=== PATIENT | male | born 1945 | race Caucasian/White ===

== ENCOUNTER 2016-11-19 15:39 | Inpatient (IN) ==
--- NOTE | 2016-11-19 16:28 | Emergency Department Note ---
Disposition Clinical Impression: Anemia, Aortic aneurysm, abdominal, Obesity, Back pain, Peripheral artery disease, HLD (hyperlipidemia), Pulmonary embolus, HTN (hypertension), Smoker Disposition: Admitted As Inpatient [facility] Provider[facility] - Forms: ED Satisfaction Letter General Adult HPI - General Chief complaint: ED Recheck/Abnormal Lab/Rx Stated complaint: confirmed PE's x 3 Time Seen by Provider: 11/19/16 15:51 Source: patient, EMS Limitations: no limitations - History of Present Illness HPI Narrative: 71-year-old male reports to the emergency department complaining of back pain. He went to the [place] with concerns for back pain. They did a CT which demonstrated multiple PEs and an aortic aneurysm. The patient's aneurysm is described as stable. He has a known aneurysm. The patient denies any falls or injuries. He reports he has had an EGD with repeat EGD secondary to gastric ulcers. He states that his second EGD showed his ulcers to be healed after his course of medication. He had a recent colonoscopy which showed no lesions. [facility] an anemia with a hemoglobin of 7.6. The patient reports the back pain started shortly after his endoscopy procedures about 3 months ago. The patient has had no syncope but describes significant fatigue. He denies acute abdominal pain vomiting or diarrhea and no bloody or black in the material in the stool. There is no history of rash fever or urinary problems no troubles moving the arms or legs independently no trouble walking talking hearing seeing or speaking or slurred speech or headache reported. The patient describes mid thoracic area back pain no lower back pain. No history of bowel or bladder problems. No fevers or cough leg swelling or pain or syncope. The patient has not had coughing of blood. He is not known to be anticoagulated apart from taking Plavix. Pain Scale: 0 - Related Data Home Medications Medication Instructions Recorded Confirmed Albuterol Sulfate [Albuterol 2 puff IH QID PRN 11/19/16 11/19/16 Inhaler] Aripiprazole [Abilify] 15 mg PO HS 11/19/16 11/19/16 Aspirin Enteric Coated [Aspirin EC] 81 mg PO DAILY 11/19/16 11/19/16 Bisacodyl [Dulcolax] 5 mg PO DAILY PRN 11/19/16 11/19/16 Budesonide/Formoterol 160/4.5 2 puff IH BIDR 11/19/16 11/19/16 [Symbicort 160/4.5] Clopidogrel [Plavix] 75 mg PO DAILY 11/19/16 11/19/16 Doxepin HCl 50 mg PO BID 11/19/16 11/19/16 Doxepin HCl 150 mg PO HS 11/19/16 11/19/16 Ipratropium [Atrovent Inhaler] 2 puff IH QID 11/19/16 11/19/16 Ketotifen Fumarate 1 drop BOTH EYES BID 11/19/16 11/19/16 Lisinopril [Zestril] 20 mg PO DAILY 11/19/16 11/19/16 Montelukast [Singulair] 10 mg PO DAILY 11/19/16 11/19/16 Omeprazole [PriLOSEC] 40 mg PO DAILY 11/19/16 11/19/16 Oxycodone HCl/Acetaminophen 1 each PO Q6H PRN 11/19/16 11/19/16 [Percocet 5-325 mg Tablet] Sennosides/Docusate Sodium [Senna 1 each PO BID 11/19/16 11/19/16 Plus] Simvastatin [Zocor] 80 mg PO HS 11/19/16 11/19/16 Triamcinolone Acet 0.1% CRM 1 appl TP BID 11/19/16 11/19/16 [Kenalog] Urea 1 appl TP BID 11/19/16 11/19/16 Allergies Allergy/AdvReac Type Severity Reaction Status Date / Time atorvastatin [From Lipitor] AdvReac See Verified 11/19/16 16:45 Comments colestipol AdvReac See Verified 11/19/16 16:45 Comments gabapentin AdvReac See Verified 11/19/16 16:45 Comments Methadone AdvReac Abdominal Verified 11/19/16 16:02 Pain niacin AdvReac See Verified 11/19/16 16:45 Comments pregabalin [From Lyrica] AdvReac Depression Verified 11/19/16 16:02 Salsalate AdvReac Nausea Verified 11/19/16 16:02 All systems ED: reviewed and negative except as stated. Past Medical History - Past Medical History Medical history: Reports: arthritis, COPD, hyperlipidemia, hypertension, pulmonary embolus, other Psychiatric history: Reports: PTSD - Social History Smoking Status: Current every day smoker Smokeless Tobacco Status: No Alcohol use: Reports: none Drug use: Reports: none Physical Exam - General Limitations: no limitations General appearance: alert, in no apparent distress - Head Head exam: atraumatic, normocephalic, normal inspection - Eye Eye exam: Present: normal appearance, PERRL, EOMI - ENT ENT exam: normal exam, normal oropharynx, mucous membranes moist - Neck Neck exam: Present: normal inspection, full ROM, trachea midline - Chest Chest inspection: Present: symmetric chest wall rise. Absent: tenderness - Respiratory Respiratory exam: Present: normal lung sounds bilaterally. Absent: respiratory distress - Cardiovascular Cardiovascular exam: Present: regular rate, normal rhythm, normal heart sounds - Abdominal Exam Abdominal exam: Present: soft, Non-Tender, normal bowel sounds. Absent: tenderness, distention, guarding, rebound, rigidity, pulsatile mass - Extremities Exam Extremities exam: Present: normal inspection, full ROM, normal capillary refill. Absent: tenderness, pedal edema, joint swelling, calf tenderness - Expanded Lower Extremity Exam Neurovascular/Tendon exam: Absent: motor deficit, sensory deficit, tendon deficit, extremity cold to touch, pallor - Back Exam Back exam: Present: normal inspection, full ROM. Absent: tenderness, CVA tenderness (R), CVA tenderness (L), vertebral tenderness - Neurological Exam Neurological exam: Present: alert, oriented X3, CN II-XII intact. Absent: motor sensory deficit - Psychiatric Psychiatric exam: Present: normal affect, normal mood - Skin Skin exam: Present: warm, dry, intact, normal color. Absent: rash, cyanosis, diaphoresis, erythema, pallor, mottled Course Vital Signs Temperature 98.1 F 11/19/16 15:44 Pulse Rate 62 11/19/16 15:44 Respiratory Rate 16 11/19/16 15:44 Blood Pressure 172/50 11/19/16 15:44 O2 Sat by Pulse Oximetry 100 11/19/16 15:44 Temperature 98.1 F 11/19/16 15:44 Pulse Rate 58 11/19/16 17:07 Respiratory Rate 18 11/19/16 17:07 Blood Pressure 159/64 11/19/16 17:07 O2 Sat by Pulse Oximetry 98 11/19/16 17:07 Oxygen Delivery Oxygen Delivery Room Air Medical Decision Making - MDM Narrative Medical decision making narrative: [facility] E[facility] and laboratory studies. The patient is elderly, he has multiple PEs by CT scan as well as an abdominal aortic aneurysm and significant anemia. He describes weakness and fatigue indicating symptomatic anemia. The patient declines a rectal examination, he denies black or bloody stool, he had a recent EGD and colonoscopy which he states were unremarkable. The patient is currently not anticoagulated, he is not experiencing chest pain. The [facility] consulted [facility] hospitalist who felt the patient was too complicated for their institution and recommended admission at our facility. The patient was transferred to our ER. Based on his age, multiple comorbidities, apparent acute PE findings, associated anemia, abdominal aneurysm, as well as back pain, I think the patient is best admitted and evaluated via a multidisciplinary construction safety consultant team. I discussed the case with the hospitalist is consultant who has accepted the patient to their care. The patient is currently stable. Further construction safety consultant evaluation could be considered including gastroenterology, hematology, surgery, and/or pulmonology. - Lab Data Lab results reviewed: Yes I reviewed the patient's lab results. - Radiology Data Radiology results reviewed: Yes I reviewed the patient's radiology results.
--- NOTE | 2016-11-19 20:08 | Internal Med History&Physical ---
<Ivania Dominguez - Last Filed: 11/20/16 19:17> Date of Encounter: 11/19/16 Time of Encounter: 20:06 Assessment and Plan (1) Pulmonary embolus Status: Acute CT scan from [place] with multiple PE, RML,RLL,LLL pt asymptomatic, hemodynamically stable start heparin drip hold asprin, plavix monitor PTT monitor H/H consider ECHO for possible RH strain consider LE doppler pulso Ox monitoring and secured entrance monitor Qualifiers: Pulmonary embolism type: other Chronicity: acute Acute cor pulmonale presence: without acute cor pulmonale Qualified Code(s): I26.99 - Other pulmonary embolism without acute cor pulmonale (2) Anemia Status: Chronic etiology GI bleed vs chronic disease doubt B12, folate, inheritance mildly symptomatic blood type and screen transfuse for symptoms and initiation of heparin for PE Fe 22, folate 19.9 B12 310 TIBC elevated at 526 and transferrin elevated 369 Qualifiers: Anemia type: unspecified type Qualified Code(s): D64.9 - Anemia, unspecified (3) Aortic aneurysm, abdominal Status: Chronic chronic, unchanged at 3.3 Qualifiers: Presence of rupture: without rupture Qualified Code(s): I71.4 - Abdominal aortic aneurysm, without rupture (4) Cholelithiasis Status: Acute seen on CT, currently asymptomatic Qualifiers: Cholelithiasis location: gallbladder Cholecystitis presence: without cholecystitis Biliary obstruction: without biliary obstruction Qualified Code(s): K80.20 - Calculus of gallbladder without cholecystitis without obstruction (5) Back pain Status: Chronic etiology possibly PE vs musculoskeletal,DDD, arthritis, chronic pain, opiate dependance, sees pain specialists continue home chronic pain medications Qualifiers: Back pain location: low back pain Back pain laterality: bilateral Sciatica presence: without sciatica (6) Lung nodule < 6cm on CT Status: Acute COPD, current s moker >45yrs seen on CT scan 5.3 calcified nodule recommend f/u CT scan in 3 months consider pulm consult (7) Renal cyst Status: Acute found on Ct scan consider nephro consult (8) HLD (hyperlipidemia) Status: Acute continue home home med Qualifiers: Hyperlipidemia type: unspecified Qualified Code(s): E78.5 - Hyperlipidemia , unspecified (9) HTN (hypertension) Status: Acute continue home meds monitor BP Qualifiers: Hypertension type: essential hypertension Qualified Code(s): I10 - Essential (primary) hypertension (10) Obesity Status: Chronic cardiac diet glucose 148 continue to monitor glucose Qualifiers: Obesity type: due to excess calories Obesity severity: non-morbid Qualified Code(s): E66.09 - Other obesity due to excess calories (11) Peripheral artery disease Status: Chronic (12) Smoker Status: Chronic offer nicotine patch prn (13) COPD (chronic obstructive pulmonary disease) Status: Acute currently stable, current smoker continue bronchodilator therapy Qualifiers: COPD type: unspecified COPD Qualified Code(s): J44.9 - Chronic obstructive pulmonary disease, unspecified (14) PTSD (post-traumatic stress disorder) Status: Chronic continue home meds Internal Medicine - H&P: HPI Chief complaint: back pain Admitted From: Hospital to Hospital Transfer (from [place]) Plans for Post Hospital Care: Home History of present illness: Mr. Robison is a 71 year old male c/o back pain. Pt transfered from [place] with evidence of multiple PEs on CT scan. PMHx AAA, CAD, PVD,COPD,HTN,HLD,smoker c/o back pain x3 months that is dull achying 10/10 located midthoracic and lumbar back without radiation. Pt states that back pain ,mostly occurs when he is standing in the shower, he is very sedentary at home and showering for about 10- 15 minutes is the longest time he spends standing in one position. Pt states that after standing this long back he gets muscles spasms in his back and pain starts without relieve from percocets or excedrin. Pt states pain is improved with sitting, and that the longer time he stand without sitting, the longer it will take for the pain to subside. Pt denies pain with sitting, any specific movements, laying flat. walking and any increased exertion increase back pain and cause him to feel weak and tired. Pt also states increased fatigue, even after sleeping well he will wake up tired and need to sit down and rest within an hour of waking. Pt states that he was following with GI because he was bleeding from somewhere, he had colonoscopy and EGD which showed polyps and 3 stomach ulcers, at follow up GI appointment a few weeks ago he was told stomach ulcers were healing. Pt also c/o some lower abdominal pain and queasiness that comes and goes without a specific inciting cause that he can think of. Pt denies falls, trauma, bleeding episodes, lightheaded, dizziness, blurred vision , ringing in ears, palpitations, CP, increased SOB or dry cough from baseline COPD, wheeze of pain with inspiration. Pt denies calf pain, LE edema, coughing up or vomiting blood, blood in stools or urine, with no change in BM or urinary habits. Past Med Surg Social Fam HX - Past Medical History Medical history: aortic aneurysm (AAA), arthritis, COPD, coronary artery disease , GERD, hyperlipidemia, hypertension, peripheral artery disease, pulmonary embolus, other (DDD, hypogonadism, BPH,) Psychiatric history: PTSD - Past Surgical History Surgical History: LE stent(s) (B/L femoral with replacement), other (inginal hernia repair) - Social History Smoking Status: Current every day smoker Packs per day: 1+ Smokeless Tobacco Status: No Alcohol use: none Drug use: none Internal Medicine - H&P: Meds Albuterol Sulfate [Albuterol Inhaler] 2 puff IH QID PRN 11/19/16 [History] Aripiprazole [Abilify] 15 mg PO HS 11/19/16 [History] Aspirin Enteric Coated [Aspirin EC] 81 mg PO DAILY 11/19/16 [History] Bisacodyl [Dulcolax] 5 mg PO DAILY PRN 11/19/16 [History] Budesonide/Formoterol 160/4.5 [Symbicort 160/4.5] 2 puff IH BIDR 11/19/16 [ History] Clopidogrel [Plavix] 75 mg PO DAILY 11/19/16 [History] Doxepin HCl 50 mg PO DAILY 11/19/16 [History] Doxepin HCl 150 mg PO HS 11/19/16 [History] Ipratropium [Atrovent Inhaler] 2 puff IH QID 11/19/16 [History] Ketotifen Fumarate 1 drop BOTH EYES BID 11/19/16 [History] Lisinopril [Zestril] 20 mg PO DAILY 11/19/16 [History] Montelukast [Singulair] 10 mg PO DAILY 11/19/16 [History] Omeprazole [PriLOSEC] 40 mg PO DAILY 11/19/16 [History] Oxycodone HCl/Acetaminophen [Percocet 5-325 mg Tablet] 1 each PO Q6H PRN [History] Sennosides/Docusate Sodium [Senna Plus] 1 each PO BID 11/19/16 [History] Simvastatin [Zocor] 80 mg PO HS 11/19/16 [History] Triamcinolone Acet 0.1% CRM [Kenalog] 1 appl TP BID 11/19/16 [History] Urea 1 appl TP BID 11/19/16 [History] Allergies atorvastatin [From Lipitor] Adverse Reaction (Verified 11/19/16 16:45) See Comments per [facility] list colestipol Adverse Reaction (Verified 11/19/16 16:45) See Comments per [facility] list gabapentin Adverse Reaction (Verified 11/19/16 16:45) See Comments per [facility] list Methadone Adverse Reaction (Verified 11/19/16 16:02) Abdominal Pain niacin Adverse Reaction (Verified 11/19/16 16:45) See Comments per [facility] list pregabalin [From Lyrica] Adverse Reaction (Verified 11/19/16 16:02) Depression Salsalate Adverse Reaction (Verified 11/19/16 16:02) Nausea Pt has ulcers, denies having "allergy" to this medication. Written per [facility] All Systems PM: A 10-system review of systems was performed and is negative for pertinent findings except as documented above in the HPI. - Constitutional Constitutional: fatigue, lethargy, no chills, no fever(s), no falls - EENT Eyes: no blurry vision, no change in vision, no diplopia Ears: no decreased hearing, no tinnitus Nose, mouth and throat: no dysphagia, no nasal discharge, no neck pain, no sore throat - Cardiovascular Cardiovascular ROS IM: no chest pain, no claudication, no diaphoresis, no edema , no irregular heart rhythm, no lightheadedness, no palpitations, no syncope - Respiratory Respiratory: cough (dry), dyspnea on exertion (stable from baseline COPD), no wheezing, no pain on inspiration, no chest congestion, no excessive phlegm production, no pain with cough - Gastrointestinal Gastrointestinal: nausea, no abdominal pain, no change in bowel habits, no change in stool character, no coffee ground emesis, no constipation, no diarrhea , no hematemesis, no hematochezia, no melena - Genitourinary Genitourinary ROS male: no dysuria, no flank pain, no hematuria - Musculoskeletal Musculoskeletal ROS IM: back pain, muscle cramps, muscle weakness, no numbness, no tingling - Integumentary Integumentary IM: no rash, no unusual bruising - Neurological Neurological ROS: lack of coordination, no confusion, no dizziness, no focal weakness, no frequent falls, no headache(s), no numbness, no paresthesias, no radicular pain, no tingling Additional comments: and daughter say he has been tripping without falling more - Psychiatric Psychiatric: no anxiety, no auditory hallucinations, no change in appetite - Hematologic/Lymphatic Hematologic/Lymphatic: no easy bleeding, no easy bruising - Constitutional Vitals: Temp Pulse Resp BP Pulse Ox 98.1 F 97 16 162/61 97 11/19/16 15:44 11/19/16 18:07 11/19/16 19:19 11/19/16 19:19 11/19/16 18:07 General appearance: Present: A&O X 3, no acute distress, obese, answers questions appropriately - Head Head exam: Present: atraumatic, normocephalic - Eye Eye exam: Present: EOMI, normal appearance, PERRL - ENT ENT exam: Present: mucous membranes moist - Neck Neck exam general surgery: Present: full ROM, supple, trachea midline - Respiratory Respiratory exam: Present: CTAB. Absent: accessory muscle use, chest wall tenderness, rales, respiratory distress, rhonchi - Cardiovascular Cardiovascular exam: Present: RRR, +S1, +S2. Absent: diastolic murmur, gallop, rubs, systolic murmur, tachycardia - GI/Abdominal GI/Abdominal exam: Present: hernia (midline fascial defect), normal bowel sounds. Absent: guarding, rebound, rigid, tenderness, no peritoneal signs - Extremities Exam Extremities exam: Present: warm, radial pulses palpable and symetrical. Absent : calf tenderness, cyanotic, joint swelling, pedal edema - Expanded Lower Extremities Exam Neuro vascular tendon exam: Absent: extremity cold to touch, pallor, pulse deficit (+PT and popliteal B/L) - Back Exam Back exam: Absent: CVA tenderness (L), CVA tenderness (R), muscle spasm, paraspinal tenderness, tenderness, vertebral tenderness - Expanded Back Exam Back exam: negative straight leg raising: Left, Right, sciatic notch tenderness : Left, Right - Neurological Exam Neurological exam: Present: alert, CN II-XII intact, oriented X3, no focal deficits, facial droop - Psychiatric Psychiatric exam: Present: normal affect, normal mood - Skin Skin exam: Present: dry, intact, warm Internal Med - H&P Results - Labs CBC & Chem 7: 11/20/16 10:47 11/19/16 23:11 - Attending Attestation Desmond Echeverria MD <Desmond Echeverria - Last Filed: 11/21/16 05:28> Internal Medicine - H&P: HPI Chief complaint: Intractable back pain Admitted From: Hospital to Hospital Transfer Plans for Post Hospital Care: Home History of present illness: Mr. Robison is a 71 year old male admitted to [facility] via the emergency department as a hospital transfer from [facility] urgent care center . He presented via EMS services from [place] concern raised pertaining to CTA of the chest demonstrating multiple pulmonary emboli. He presented to the [place] complaining of nondescript but intractable back pain following endoscopy procedures approximately 3 months prior for symptomatic gastric, ulcerations/PUD. Patient' s back pain complaint was consistent with his many years history of debility due to severe DDD/DJD of the spine and functional limitations in mobility as a consequence. However, [facility] concern motivating referral was for possible acute blood loss anemia with evidence of a hemoglobin declined to 7.6 from a baseline >10. Patient had been undergoing evaluation for this persistent chronic anemia as an outpatient. Endoscopic studies had confirmed the peptic ulcer disease with gastric ulcerations. No formal treatment for his anemia was yet initiated due to the current events. Patient is prescribed Plavix known diffuse PAD s/p multiple LE as human interventions with stenting. Patient presents with significant chronic morbidities that characterizes increased risk for further clinical decline and morbidity given resenting chief complaints and clinical findings. The patient was visited and interviewed and examined. I examined this patient and my medical decision-making was reviewed with the Resident Physician, Dr. Ivania Dominguez. For this encounter, I have reviewed the documentation, treatment plan, and medical decision making. I agree with the documented findings, disposition and treatment plan as described except to the extent set forth below. Laboratory and radiographic database was reviewed, considered and discussed. Given the patient's was any concerns, past medical history, clinical findings and symptoms, he is admitted at this time to undergo further evaluation and disposition. Past Med Surg Social Fam HX - Past Medical History Source: old records reviewed Medical history: aortic aneurysm, arthritis (Osteoarthritis/degenerative joint disease. DDD of spine.), asthma, COPD, coronary artery disease, GERD (Peptic ulcer disease/gastric ulcers.), GI bleed (Colonic polyps.), hyperlipidemia, hypertension, osteoporosis (Vitamin D deficiency.), peripheral artery disease, pulmonary embolus, renal disease (Benign prostatic hypertrophy. Hypogonadism.) , other (Dermatitis, topical steroid responsive. Chronic pain syndrome.) Psychiatric history: anxiety, depression, PTSD, other - Past Surgical History Surgical History: carotid endarterectomy, LE stent(s) (Multiple lower extremity stents (5 right and 4 left).), LE vascular intervention, orthopedic, other, vascular surgery (Left carotid endarterectomy.), other (EGD. Colonoscopy.) - Social History Smoking Status: Current every day smoker Packs per day: 1.5ppd+ x45yrs Alcohol use: none Drug use: none Occupational status: retired Current living situation: With Family Activity Level: Independent ambulation, Uses cane/walker, Bed bound, Mostly sedentary Recent Out of Country Travel Within the Last 8 Weeks: No Exposure or Possible Exposure to Illness During Travel: No All Systems PM: A 10-system review of systems was performed and is negative for pertinent findings except as documented above in the HPI. - Constitutional Vitals: Temp Pulse Resp BP Pulse Ox 98.3 F 70 18 164/68 95 11/20/16 11:42 11/20/16 11:42 11/20/16 11:42 11/20/16 11:42 11/20/16 11:42 Internal Med - H&P Results - Labs CBC & Chem 7: 11/20/16 10:47 11/19/16 23:11 Labs: Short CBC 11/20/16 Range/Units 10:47 WBC 5.6 (4.3-11.1) K/mcL Hgb 8.4 L D (12.9-16.9) g/dL Hct 28.1 L (37.5-50.1) % Plt Count 216 (140-400) K/mcL Cardiac Enzymes 11/20/16 Range/Units 10:47 Troponin I 0.01 (0-0.03) ng/mL Vital Signs Temp Pulse Resp BP Pulse Ox 11/20/16 11:42 98.3 F 70 18 164/68 95 Intake and Output 11/20/16 11/20/16 11/21/16 15:59 23:59 07:59 Intake Total 1480 / 1480 Balance 1480 / 1480 Intake: IV Fluids 1000 / 1000 0.9 % Sodium Chloride 1, 1000 / 1000 000 ML @ 100 mls/hr IVC . Q10H SHANTEL Rx#:[id number] Oral 480 / 480 Other: Meal Lunch Percent of Meal Consumed 100% Short CBC 11/20/16 Range/Units 10:47 WBC 5.6 (4.3-11.1) K/mcL Hgb 8.4 L D (12.9-16.9) g/dL Hct 28.1 L (37.5-50.1) % Plt Count 216 (140-400) K/mcL Cardiac Enzymes 11/20/16 Range/Units 10:47 Troponin I 0.01 (0-0.03) ng/mL Allergies Allergy/AdvReac Type Severity Reaction Status Date / Time atorvastatin [From Lipitor] AdvReac See Verified 11/19/16 16:45 Comments colestipol AdvReac See Verified 11/19/16 16:45 Comments gabapentin AdvReac See Verified 11/19/16 16:45 Comments Methadone AdvReac Abdominal Verified 11/19/16 16:02 Pain niacin AdvReac See Verified 11/19/16 16:45 Comments pregabalin [From Lyrica] AdvReac Depression Verified 11/19/16 16:02 Salsalate AdvReac Nausea Verified 11/19/16 16:02 Laboratory Results WBC 5.6 K/mcL (4.3-11.1) 11/20/16 10:47 RBC 4.35 M/mcL (4.19-5.50) 11/20/16 10:47 Hgb 8.4 g/dL (12.9-16.9) L D 11/20/16 10:47 Hct 28.1 % (37.5-50.1) L 11/20/16 10:47 MCV 64.6 fL (83.0-100.0) L 11/20/16 10:47 MCH 19.3 pg (28.0-33.3) L 11/20/16 10:47 MCHC 29.9 g/dL (31.6-35.5) L 11/20/16 10:47 RDW 24.9 % (11.5-14.5) H 11/20/16 10:47 Plt Count 216 K/mcL (140-400) 11/20/16 10:47 MPV TNP 11/20/16 10:47 Immature Gran % 0.5 % (0-4) 11/19/16 23:11 Seg Neutrophils % 65.9 % 11/19/16 23:11 Lymphocytes % 19.1 % 11/19/16 23:11 Monocytes % 10.0 % 11/19/16 23:11 Eosinophils % 3.6 % 11/19/16 23:11 Basophils % 0.9 % 11/19/16 23:11 Neutrophils # 3.7 K/mcL (1.6-8.9) 11/19/16 23:11 Lymphocytes # 1.1 K/mcL (0.6-4.6) 11/19/16 23:11 Monocytes # 0.6 K/mcL (0.0-1.3) 11/19/16 23:11 Eosinophils # 0.2 K/mcL (0.0-0.6) 11/19/16 23:11 Basophils # 0.1 K/mcL (0.0-0.2) 11/19/16 23:11 Immature Plt Fraction 11.5 % (1.1-6.1) H 11/20/16 10:47 Polychromasia 1+ (Not Present) A 11/19/16 23:11 Hypochromasia Present (Not Present) A 11/19/16 23:11 Anisocytosis 2+ (Not Present) A 11/19/16 23:11 Microcytosis Present (Not Present) A 11/19/16 23:11 PT 11.6 Seconds (9.4-12.1) 11/20/16 10:47 INR 1.1 11/20/16 10:47 APTT 22.9 Seconds (26.0-36.0) L 11/20/16 10:47 Fibrinogen 301 mg/dL (169-393) 11/20/16 10:47 D-Dimer 656 ng/mLFEU (0-500) H 11/20/16 10:47 VBG pH 7.43 pH Units (7.32-7.42) H 11/19/16 23:11 VBG pCO2 34 mmHg (41-51) L 11/19/16 23:11 VBG pO2 122 mmHg (25-40) H 11/19/16 23:11 VBG HCO3 22.6 mEq/L (21-27) 11/19/16 23:11 Sodium 140 mEq/L (136-145) 11/19/16 23:11 Potassium 4.1 mEq/L (3.5-4.5) 11/19/16 23:11 Chloride 110 mEq/L (98-109) H 11/19/16 23:11 Carbon Dioxide 21 mEq/L (19-29) 11/19/16 23:11 BUN 18 mg/dL (8-26) 11/19/16 23:11 Creatinine 1.20 mg/dL (0.72-1.25) 11/19/16 23:11 Est GFR ( Amer) > 60 (> 60) 11/19/16 23:11 Est GFR (Non-Af Amer) 60 (> 60) 11/19/16 23:11 BUN/Creatinine Ratio 15 (6-26) 11/19/16 23:11 Glucose 106 mg/dL (70-99) H 11/19/16 23:11 POC Glucose 114 (58-89) H 11/20/16 05:53 Calculated Osmolality 292 (280-300) 11/19/16 23:11 Calcium 9.0 mg/dL (8.6-10.8) 11/19/16 23:11 Phosphorus 3.0 mg/dL (2.3-4.7) 11/20/16 10:47 Magnesium 1.8 mg/dL (1.6-2.6) 11/20/16 10:47 Total Bilirubin 0.4 mg/dL (0.2-1.2) 11/19/16 23:11 AST 15 Units/L (5-34) 11/19/16 23:11 ALT 12 Units/L (0-55) 11/19/16 23:11 Alkaline Phosphatase 61 Units/L (38-126) 11/19/16 23:11 Troponin I 0.01 ng/mL (0-0.03) 11/20/16 10:47 B-Natriuretic Peptide 58 pg/mL (0-100) 11/20/16 10:47 Serum Total Protein 6.4 g/dL (6.0-8.3) 11/19/16 23:11 Albumin 3.4 g/dL (3.5-5.0) L 11/19/16 23:11 Globulin 3.0 g/dL (2.4-3.5) 11/19/16 23:11 Albumin/Globulin Ratio 1.1 (1.1-2.2) 11/19/16 23:11 Triglycerides 265 mg/dL (< 150) H 11/20/16 10:47 Cholesterol 142 mg/dL (< 200) 11/20/16 10:47 LDL Cholesterol, Calc 60 mg/dL (0-99) 11/20/16 10:47 VLDL Cholesterol, Calc 53 mg/dL (< 31) H 11/20/16 10:47 HDL Cholesterol 29 mg/dL (40-59) L 11/20/16 10:47 Cholesterol/HDL Ratio 4.9 (0-4.9) 11/20/16 10:47 TSH 1.031 mcIU/mL (0.350-4.840) 11/19/16 23:11 Blood Type O POSITIVE 11/19/16 23:11 Antibody Screen NEGATIVE 11/19/16 23:11 Crossmatch See Detail 11/19/16 23:11 - ABG Interpretation ABG results: 11/19/16 23:11 VBG pH 7.43 H VBG pCO2 34 L VBG pO2 122 H VBG HCO3 22.6 - Attending Attestation My signature below is to certify that this patient is under my care and that I, or the Resident Physician, Dr. Ivania Dominguez , working with me, has had a [id number] encounter with this patient. Plan of care has been reviewed and discussed in detail with the patient. Questions were addressed. Advanced healthcare directive discussion briefly addressed. The patient does not declare any healthcare restrictions at this time. Outpatient medication schedules will be reviewed, confirmed and facilitated as appropriate. Reconciliation of home treatments including adjustments, substitutions and reintroduction of the treatment regimen will address necessary maintenance therapies for chronic pre-existing medical conditions. Smoking cessation counseling briefly addressed. The patient accepts nicotine substitution during this admission. Hospital course will be dependent on clinical findings, treated response and potential consultative interventions. Consultative opinions will be sought as clinical circumstances justify. The patient is at risk for acute clinical decline and morbidity given his presenting chief complaint, clinical findings, frailty and associated comorbidities. Condition is serious. Prognosis is guarded. CODE STATUS is reported as full.
[2016-11-19] MEDS ORDERED: *HR* Promethazine 25 MG/ML VIAL IVP PRN (22:13)
[2016-11-19] MEDS ORDERED: Naloxone 0.4 MG/ML INJ IVP PRN (22:13)
[2016-11-19] MEDS ORDERED: *HR* OxyCODONE/APAP 5/325 TABLET PO PRN (22:18)
[2016-11-19] MEDS ORDERED: ARIPiprazole 5 MG TABLET PO SCH (22:30)
[2016-11-19] MEDS: Ipratropium 1 PUFF INHALER IH SCH (22:43)
[2016-11-19] MEDS ORDERED: *HR* Enoxaparin 100 MG/ML SYRINGE SQ STA (22:49)
[2016-11-19] MEDS: Lisinopril 20 MG TABLET PO SCH (23:09)
[2016-11-19] MEDS: Sennosides/Docusate Sodium TABLET PO SCH (23:09)
[2016-11-19] MEDS: 0.9 % Sodium Chloride 1,000 ML IVC SCH (23:17)
[2016-11-19 23:30] LABS: Basophils # 0.1 K/mcL (0.0-0.2); Basophils % 0.9 %; Eosinophils # 0.2 K/mcL (0.0-0.6); Eosinophils % 3.6 %; Hematocrit 23.7 % (37.5-50.1); Hemoglobin 6.9 g/dL (12.9-16.9); Immature Granulocytes % 0.5 % (0-4); Immature Platelets 9.9 % (1.1-6.1); Lymphocytes # 1.1 K/mcL (0.6-4.6); Lymphocytes % 19.1 %; Mean Corpuscular HGB Conc 29.1 g/dL (31.6-35.5); Mean Corpuscular Volume 61.7 fL (83.0-100.0); Monocytes # 0.6 K/mcL (0.0-1.3); Neutrophils # 3.7 K/mcL (1.6-8.9); Platelet Count 266 K/mcL (140-400); Red Blood Count 3.84 M/mcL (4.19-5.50); Red Cell Distribution Width 22.5 % (11.5-14.5); Segmented Neutrophils % 65.9 %; VBG HCO3 22.6 mEq/L (21-27); VBG PH 7.43 pH Units (7.32-7.42)
[2016-11-19 23:48] LABS: Alanine Aminotransferase 12 Units/L (0-55); Albumin 3.4 g/dL (3.5-5.0); Albumin/Globulin Ratio 1.1 (1.1-2.2); Alkaline Phosphatase 61 Units/L (38-126); Aspartate Amino Transferase 15 Units/L (5-34); BUN/Creatinine Ratio 15 (6-26); Bilirubin,Total 0.4 mg/dL (0.2-1.2); Blood Urea Nitrogen 18 mg/dL (8-26); Carbon Dioxide 21 mEq/L (19-29); Chloride 110 mEq/L (98-109); Glucose 106 mg/dL (70-99); Osmolality,Calculated 292 (280-300); Potassium 4.1 mEq/L (3.5-4.5); Sodium 140 mEq/L (136-145); Total Protein 6.4 g/dL (6.0-8.3); eGFR For African Americans > 60 (> 60); eGFR For Non-African Americans 60 (> 60)
[2016-11-19 23:51] LABS: Anisocytosis 2+ (Not Present); Hypochromasia Present (Not Present); Microcytosis Present (Not Present); Polychromasia 1+ (Not Present)
[2016-11-19] MEDS: Aspirin 81 MG TAB.CHEW PO SCH (23:57)
[2016-11-20] MEDS ORDERED: *HR* Morphine 2 MG/ML SYRINGE IVP PRN (00:22)
[2016-11-20] MEDS ORDERED: Acetaminophen 325 MG TABLET PO PRN (00:22)
[2016-11-20] MEDS ORDERED: 0.9 % Sodium Chloride 250 ML ONE ×2 (00:45→04:45)
[2016-11-20 01:16] LABS: Thyroid Stimulating Hormone 1.031 mcIU/mL (0.350-4.840)
[2016-11-20] MEDS: (Ketotifen Fumarate [Ketotifen Fumarate] 1 DROP) OP SCH ×2 (01:39→08:31)
[2016-11-20] MEDS: Ipratropium 1 PUFF INHALER IH SCH ×4 (05:00→15:36)
[2016-11-20] MEDS: Lisinopril 20 MG TABLET PO SCH (08:30)
[2016-11-20] MEDS: Aspirin 81 MG TAB.CHEW PO SCH (08:30)
[2016-11-20] MEDS: 0.9 % Sodium Chloride 1,000 ML IVC SCH (08:30)
[2016-11-20] MEDS: Sennosides/Docusate Sodium TABLET PO SCH (08:31)
[2016-11-20] MEDS ORDERED: *HR* Heparin 5,000 UNIT/ML VIAL IVP PRN (08:50)
--- NOTE | 2016-11-20 08:54 | Internal Med Progress Note ---
Date of Encounter: 11/20/16 Time of Encounter: 08:52 - Assessment and plan (1) Pulmonary embolus Current Visit: Yes Status: Acute Assessment and plan: CT scan from [place] with multiple acute PE, RML,RLL,LLL start heparin drip hold plavix Consider vascular surgery consult is not able to continue on anticoagulation/ consider IVC filter monitor H/H consider ECHO for possible RH strain LE doppler ordered High risk for anemia and pulmonary emboli Qualifiers: Chronicity: acute Acute cor pulmonale presence: without acute cor pulmonale Qualified Code(s): I26.99 - Other pulmonary embolism without acute cor pulmonale (2) Anemia Current Visit: Yes Status: Acute Assessment and plan: Acute blood loss anemia possibly from GI source with history of gastric ulcers Received 2 units of blood, monitor CBC Hold Plavix for now Start Protonix iv Consider discontinuing aspirin, the patient will be on a heparin drip due to pulmonary emboli as apparently he is not actively bleeding Stop Lovenox GI consult Qualifiers: Anemia type: unspecified type Qualified Code(s): D64.9 - Anemia, unspecified (3) Aortic aneurysm, abdominal Current Visit: Yes Status: Acute Assessment and plan: Stable [facility] Qualifiers: Presence of rupture: without rupture Qualified Code(s): I71.4 - Abdominal aortic aneurysm, without rupture (4) HLD (hyperlipidemia) Current Visit: Yes Status: Acute Qualifiers: Hyperlipidemia type: unspecified Qualified Code(s): E78.5 - Hyperlipidemia , unspecified (5) HTN (hypertension) Current Visit: Yes Status: Acute Qualifiers: Hypertension type: essential hypertension Qualified Code(s): I10 - Essential (primary) hypertension (6) Smoker Current Visit: Yes Status: Acute Assessment and plan: Smoking cessation counseling (7) Lung nodule < 6cm on CT Current Visit: Yes Status: Acute Assessment and plan: Follow-up as an outpatient (8) COPD (chronic obstructive pulmonary disease) Current Visit: Yes Status: Acute Qualifiers: COPD type: unspecified COPD Qualified Code(s): J44.9 - Chronic obstructive pulmonary disease, unspecified (9) PTSD (post-traumatic stress disorder) Current Visit: Yes Status: Acute - Time Spent With Patient Greater than 35 minutes - Subjective Interval history: The patient is a stable, denies any recent bleeding or dark stools recently. Denies any chest pressures of breath, has been complaining of the chronic back pain. Denies any nausea or vomiting, no dysuria - Constitutional Vitals: Temp Pulse Resp BP Pulse Ox 98.1 F 68 16 147/51 97 11/20/16 03:55 11/20/16 03:55 11/20/16 03:55 11/20/16 03:55 11/20/16 00:56 General appearance: Present: A&O X 3, no acute distress, obese, answers questions appropriately - Head Head exam: Present: atraumatic, normocephalic - Eye Eye exam: Present: PERRL, conjuntiva pink, sclera anicteric Pupils: Present: PERRL - Neck Neck exam general surgery: Present: supple, trachea midline. Absent: lymphadenopathy - Respiratory Respiratory exam: Present: CTAB. Absent: accessory muscle use, rales, rhonchi, wheezes - Cardiovascular Cardiovascular exam: Present: RRR, +S1, +S2. Absent: diastolic murmur, gallop, rubs, systolic murmur - GI/Abdominal GI/Abdominal exam: Present: normal bowel sounds, soft, no peritoneal signs. Absent: distended, tenderness Additional comments: Large abdominal hernia - Extremities Exam Extremities exam: Present: warm, radial pulses palpable and symetrical. Absent : calf tenderness, cyanotic, pedal edema - Neurological Exam Neurological exam: Present: CN II-XII intact, oriented X3, no focal deficits. Absent: pronater drift, facial droop, speech deficit - Skin Skin exam: Present: dry, intact Internal Medicine: Result - Labs CBC & Chem 7: 11/19/16 23:11 11/19/16 23:11 Labs: Short CBC 11/19/16 Range/Units 23:11 WBC 5.6 (4.3-11.1) K/mcL Hgb 6.9 L (12.9-16.9) g/dL Hct 23.7 L (37.5-50.1) % Plt Count 266 (140-400) K/mcL Neutrophils # 3.7 (1.6-8.9) K/mcL BMP 11/19/16 23:11 Sodium 140 Potassium 4.1 Chloride 110 H Carbon Dioxide 21 BUN 18 Creatinine 1.20 Glucose 106 H Calcium 9.0 Cardiac Enzymes 11/19/16 Range/Units 23:11 Troponin I 0.02 (0-0.03) ng/mL Liver Function 11/19/16 Range/Units 23:11 Total Bilirubin 0.4 (0.2-1.2) mg/dL AST 15 (5-34) Units/L ALT 12 (0-55) Units/L Alkaline Phosphatase 61 (38-126) Units/L Albumin 3.4 L (3.5-5.0) g/dL Consult Discharge Plan - Plan Referrals: [facility] [Primary Care Provider] -
[2016-11-20] MEDS ORDERED: Heparin 25,000 UNIT/500 ML D5W 25,000 UNIT/500 ML MLS IVC SCH (09:00)
[2016-11-20] MEDS ORDERED: Pantoprazole 40 MG VIAL IV SCH (09:00)
--- NOTE | 2016-11-20 09:33 | Gastroenterology Consult Note ---
<Tanesha River - Last Filed: 11/20/16 10:52> Date of Encounter: 11/20/16 Time of Encounter: 10:10 - Assessment and plan (1) Anemia Current Visit: Yes Status: Chronic Assessment and plan: R/O gib, recent endoscopies at the [facility]. Obtain reports.No S/S of active GIB. Patient is being placed on anti-coagulation for multiple PEs. <Monitor H&H and for active signs of bleeding. Qualifiers: Anemia type: unspecified type Qualified Code(s): D64.9 - Anemia, unspecified (2) Pulmonary embolus Current Visit: Yes Status: Acute Assessment and plan: Multiple, patient now on heparin gtt. Qualifiers: Chronicity: acute Acute cor pulmonale presence: without acute cor pulmonale Qualified Code(s): I26.99 - Other pulmonary embolism without acute cor pulmonale (3) Hx of peptic ulcer Current Visit: Yes Status: Acute Assessment and plan: bid PPI, he is s/p carafate therapy. Repeat EGD approximately 1 month ago was negative for findings. No s/s of active GIB. - Time Spent With Patient Total time spent is greater than 50% in coordination of care (as documented) at patient's floor/unit and/or counseling patient: less than 15 minutes GI History of Present Illness - Data of Consult Patient: new to practice Consult date: 11/20/16 Requesting Physician: Cruzito Aranda - Consult Narrative Reason for consult: Anemia History of present illness: Mr. Robison is a 71 year old male with a PMH of AAA, CAD, PVD, COPD, HTN, HLD and tobacco smoker. Pt transfered from [place] with evidence of multiple PEs on CT scan and a complaint of back pain x3 months. Pt states that back pain ,mostly occurs when he is standing in the shower, he is very sedentary at home and showering for about 10-15 minutes is the longest time he spends standing in one position. Pt states that after standing this long he gets muscles spasms in his back. No relief from percocet or excedrin. Pt states pain is improved with sitting, and that the longer time he stand without sitting, the longer it will take for the pain to subside. Pt denies pain with sitting, any specific movements, laying flat. walking. Increased exertion will increase the back pain. Pt also states increased fatigue, even after sleeping well he will wake up tired and need to sit down and rest within an hour of waking. Pt states that he was following with GI because he was bleeding from somewhere, he had colonoscopy and EGD which showed polyps and 3 stomach ulcers, at follow up GI appointment a few weeks ago he was told stomach ulcers were healing. Pt also c/ o some lower abdominal pain and queasiness that comes and goes without a specific cause. Pt denies falls, trauma, bleeding episodes, lightheaded, dizziness, blurred vision, ringing in ears, palpitations, CP, increased SOB or dry cough from baseline COPD, wheeze of pain with inspiration. Pt denies calf pain, LE edema, coughing up or vomiting blood, blood in stools or urine, with no change in BM or urinary habits. Patient has a large ventral hernia with some epigastric tenderness on exam. Denies all GI symptoms at this time. BM regular, no black stools or blood, every other day. Denies N/V, dysphagia or dyspepsia on current regimen. He states he just wants to go home. Colonoscopy: 07/2016 - polyps per the patient ([facility]) EGD: 08/2016 - repeat for gastric ulcer/Barretts - healed per pt ([facility]) Past Med Surg Social Fam HX - Past Medical History Medical history: aortic aneurysm (AAA), arthritis, COPD, coronary artery disease , GERD, hyperlipidemia, hypertension, peripheral artery disease, pulmonary embolus, other (DDD, hypogonadism, BPH,) Psychiatric history: PTSD - Past Surgical History Surgical History: LE stent(s) (B/L femoral with replacement), other (inginal hernia repair) - Social History Smoking Status: Current every day smoker Packs per day: 1+ Smokeless Tobacco Status: No Alcohol use: none Drug use: none - Gastrointestinal NSAID use: Excedrin Anticoagulation Use: PLAVIX at home, heparin gtt Number of BM Per Day: every other day Gastrointestinal: Present: abdominal pain - Constitutional Constitutional: fatigue - EENT Eyes: as per HPI Ears: Present: as per HPI Nose, mouth and throat: Present: as per HPI - Cardiovascular Cardiovascular ROS: Present: as per HPI - Respiratory Respiratory IM: Present: cough, dyspnea - Neurological ROS Neurological GI: Present: weakness - Hematologic/Lymphatic Hematologic/Lymphatic pediatric: Present: as per HPI - Musculoskeletal Musculoskeletal ROS GI: Present: back pain - Integumentary Integumentary GI: Present: as per HPI - Psychiatric ROS Psychiatric GI: Present: as per HPI - Endocrine Endocrine IM: Present: as per HPI - Constitutional Vitals: Temp Pulse Resp BP Pulse Ox 98.1 F 68 16 147/51 97 11/20/16 03:55 11/20/16 03:55 11/20/16 03:55 11/20/16 03:55 11/20/16 00:56 General appearance: Present: cooperative, A&O X 3, no acute distress, answers questions appropriately - Head Head exam: Present: atraumatic, normocephalic - Eye Eye exam: Present: normal appearance, sclera anicteric - ENT ENT exam: Present: mucous membranes moist - Neck Neck exam general surgery: Present: normal inspection, trachea midline - Respiratory Respiratory exam: Present: decreased breath sounds, wheezes - Cardiovascular Cardiovascular exam: Present: RRR, +S1, +S2 - GI/Abdominal GI/Abdominal exam: Present: soft, tenderness, no peritoneal signs Additional comments: large ventral hernia - Rectal Rectal exam: Present: deferred - Extremities Exam Extremities exam: Present: warm - Neurological Exam Neurological exam: Present: no focal deficits - Psychiatric Psychiatric exam: Present: normal affect, normal mood - Skin Skin exam: Present: dry, intact, normal color, warm Results - Labs CBC & Chem 7: 11/19/16 23:11 11/19/16 23:11 Labs: Last Result Calcium 9.0 mg/dL (8.6-10.8) 11/19/16 23:11 Troponin I 0.02 ng/mL (0-0.03) 11/19/16 23:11 Entire Visit Hgb 6.9 g/dL (12.9-16.9) L 11/19/16 23:11 Hct 23.7 % (37.5-50.1) L 11/19/16 23:11 Total Bilirubin 0.4 mg/dL (0.2-1.2) 11/19/16 23:11 AST 15 Units/L (5-34) 11/19/16 23:11 ALT 12 Units/L (0-55) 11/19/16 23:11 Consult Discharge Plan - Plan [facility]errals: [facility] [Primary Care Provider] - (please call and make appoinment in 5-7 days ) <Chloé Sam - Last Filed: 11/20/16 17:43> - Time Spent With Patient Total time spent is greater than 50% in coordination of care (as documented) at patient's floor/unit and/or counseling patient: GI History of Present Illness - Data of Consult Requesting Physician: Cruzito Aranda - Consult Narrative History of present illness: Mr. Robison is a 71 year old male - Constitutional Vitals: Temp Pulse Resp BP Pulse Ox 98.3 F 70 18 164/68 95 11/20/16 11:42 11/20/16 11:42 11/20/16 11:42 11/20/16 11:42 11/20/16 11:42 Results - Labs CBC & Chem 7: 11/20/16 10:47 11/19/16 23:11 Labs: Last Result Calcium 9.0 mg/dL (8.6-10.8) 11/19/16 23:11 Troponin I 0.01 ng/mL (0-0.03) 11/20/16 10:47 Triglycerides 265 mg/dL (< 150) H 11/20/16 10:47 Entire Visit Hgb 8.4 g/dL (12.9-16.9) L D 11/20/16 10:47 Hct 28.1 % (37.5-50.1) L 11/20/16 10:47 PT 11.6 Seconds (9.4-12.1) 11/20/16 10:47 Total Bilirubin 0.4 mg/dL (0.2-1.2) 11/19/16 23:11 AST 15 Units/L (5-34) 11/19/16 23:11 ALT 12 Units/L (0-55) 11/19/16 23:11 - ABG ABG results: PT/INR, D-dimer PT 11.6 Seconds (9.4-12.1) 11/20/16 10:47 D-Dimer 656 ng/mLFEU (0-500) H 11/20/16 10:47 - Attending Attestation Patient left AMA before seen by me
[2016-11-20] MEDS ORDERED: Budesonide/Formoterol 160/4.5 MDI IH SCH (10:00)
[2016-11-20 11:01] LABS: Hematocrit 28.1 % (37.5-50.1); Hemoglobin 8.4 g/dL (12.9-16.9); Immature Platelets 11.5 % (1.1-6.1); Mean Corpuscular HGB Conc 29.9 g/dL (31.6-35.5); Mean Corpuscular Hemoglobin 19.3 pg (28.0-33.3); Mean Corpuscular Volume 64.6 fL (83.0-100.0); Platelet Count 216 K/mcL (140-400); Red Blood Count 4.35 M/mcL (4.19-5.50); Red Cell Distribution Width 24.9 % (11.5-14.5)
[2016-11-20 11:08] LABS: INR 1.1; Prothrombin Time 11.6 Seconds (9.4-12.1)
[2016-11-20 11:10] LABS: Activated Partial Thrombo Time 22.9 Seconds (26.0-36.0)
[2016-11-20 11:13] LABS: Chol/HDL Ratio 4.9 (0-4.9); Magnesium 1.8 mg/dL (1.6-2.6)
[2016-11-20 11:45] VITALS: BP 164/68
[2016-11-20] MEDS ORDERED: *HR* OxyCODONE/APAP 5/325 TABLET PO PRN (13:20)
[2016-11-20] MEDS ORDERED: Nicotine 21 MG PATCH.TD24 TD SCH (13:30)
--- NOTE | 2016-11-20 14:22 | Electrocardiograph Report ---
[place] [id number] Test Date: 2016-11-20 Pat Name: Wes Robison Department: 111 Room: 2NE17 Gender: M Air Duct Mechanic: : 1945 Requested By: Desmond Echeverria Order Number: [id number] Reading MD: Jayden Menchaca MD Measurements Intervals Pierce Rate: 65 P: 55 CO: 212 QRS: 39 QRSD: 104 T: 43 QT: 399 QTc: 411 Interpretive Statements SINUS RHYTHM WITH FIRST DEGREE AV BLOCK Electronically Signed On 11-20-2016 14:20:55 EDT by Jayden Menchaca MD
--- NOTE | 2016-11-20 15:28 | ECHO - Doppler Report ---
Echocardiogram Name: Wes Robison Date of Study: 11/20/2016 Date: 1945 Ht: 71.0 in Medical Record#: [id number] Age: 71 Wt: 215.0 lb Gender: Male BSA: 2.17 Order #: [id number] Location: [facility] Room #: 2NE17 Reading Physician: Patito Andersen DO Vice President Biostatistics: Manjit Nicole CHEL Ordering Physician: Ivania Dominguez DO Primary Physician: [facility] Indications: Pulmonary embolus Impressions: LVEF 65%. Normal left ventricular size and systolic function. There is evidence of mild diastolic dysfunction of the left ventricle. Normal right ventricular size and function. No significant valvular dysfunction. No pulmonary hypertension. Left Ventricular Wall Motion: Rest Echo Findings All wall segments showed normal motion. Findings: Study Quality * Technically adequate exam. ECG Findings * Normal sinus rhythm. Left Ventricle * LVEF 65%. * Normal LV chamber size, wall thickness and function. * Mild left ventricular diastolic dysfunction. Mitral Valve * Normal mitral valve structure. * No mitral regurgitation. * No mitral stenosis. Aortic Valve * No aortic regurgitation. * Trileaflet aortic valve. * Mild to moderately calcified aortic valve leaflets. * No aortic stenosis. Tricuspid Valve * Tricuspid valve not well visualized. * Trace tricuspid regurgitation. * Estimated RA pressure is 3 mmHg. * Estimated RVSP is 27 mmHg. * No pulmonary hypertension. Pulmonic Valve * Pulmonic valve is not well visualized. * No pulmonic stenosis. * No pulmonic regurgitation. Pulmonary Artery * Pulmonary artery not well visualized. Right Ventricle * Normal right ventricular structure and function. Right Atrium * Normal right atrial size. Left Atrium * Moderately dilated left atrium. Interatrial Septum * No evidence of PFO by color Doppler. IVC * Normal IVC dimensions and inspiratory collapse. Pericardium * There is no pericardial effusion present. Aorta * Normally sized aortic root. History Hypertension History of Smoking Years 40 Packs 2 Measurements: BP: 164/ 68 2D Normal Values IVSd: .96 cm 0.6 - 1.0 cm LVIDd: 5.08 cm 3.7 - 5.6 cm LVPWd: .96 cm 0.6 - 1.1 cm LVIDs: 2.90 cm 1.5 - 3.6 cm AO: 2.90 cm < 4.0 cm LA: 4.20 cm 2.0 - 4.0cm %FS: 42.90 cm >25 % LA volume: 88 Mitral Valve Peak E:.90 m/sec Peak A:1.06 m/sec E/A Ratio:0.8 Peak E' Lat Javed:8.81 cm/s Peak E' Med Javed:9.03 cm/s E/E' Lat Ratio:10.2 E/E' Med Ratio:9.9 Tricuspid Valve TV Regurg Peak Grad: 24.00mmHg TV Regurg Peak Javed: 2.47m/sec Updated by Patito Andersen on 11/20/2016 3:24:26 PM electronically signed on 11/20/2016 3:24:56 PM with status of Final Wall Motion Duong: 1=Normal, 2=Hypokinesis, 3=Akinesis, 4=Dyskinesis, 5=Aneurysmal, 6=Hyperkinetic, X=Not Visualized (Blank)=Missing
--- NOTE | 2016-11-20 17:24 | Discharge Summary ---
Date of Encounter: 11/20/16 Time of Encounter: 17:18 - Discharge Diagnosis (1) Pulmonary embolus Priority: Primary Status: Acute Comments: CT scan from [place] with multiple acute PE, RML,RLL,LLL Qualifiers: Chronicity: acute Acute cor pulmonale presence: without acute cor pulmonale Qualified Code(s): I26.99 - Other pulmonary embolism without acute cor pulmonale (2) Anemia Priority: Primary Status: Chronic Comments: Acute blood loss anemia possibly from GI source with history of gastric ulcers Qualifiers: Anemia type: unspecified type Qualified Code(s): D64.9 - Anemia, unspecified (3) Aortic aneurysm, abdominal Priority: Secondary Status: Acute Qualifiers: Presence of rupture: without rupture Qualified Code(s): I71.4 - Abdominal aortic aneurysm, without rupture (4) HLD (hyperlipidemia) Priority: Secondary Status: Acute Qualifiers: Hyperlipidemia type: unspecified Qualified Code(s): E78.5 - Hyperlipidemia , unspecified (5) HTN (hypertension) Priority: Secondary Status: Acute Qualifiers: Hypertension type: essential hypertension Qualified Code(s): I10 - Essential (primary) hypertension (6) Smoker Priority: Secondary Status: Acute (7) Lung nodule < 6cm on CT Priority: Secondary Status: Acute (8) COPD (chronic obstructive pulmonary disease) Priority: Secondary Status: Acute Qualifiers: COPD type: unspecified COPD Qualified Code(s): J44.9 - Chronic obstructive pulmonary disease, unspecified (9) PTSD (post-traumatic stress disorder) Priority: Secondary Status: Acute - Discharge Medications Home Medications: Albuterol Sulfate [Albuterol Inhaler] 2 puff IH QID PRN 11/19/16 [History] Aripiprazole [Abilify] 15 mg PO HS 11/19/16 [History] Aspirin Enteric Coated [Aspirin EC] 81 mg PO DAILY 11/19/16 [History] Bisacodyl [Dulcolax] 5 mg PO DAILY PRN 11/19/16 [History] Budesonide/Formoterol 160/4.5 [Symbicort 160/4.5] 2 puff IH BIDR 11/19/16 [ History] Clopidogrel [Plavix] 75 mg PO DAILY 11/19/16 [History] Doxepin HCl 50 mg PO DAILY 11/19/16 [History] Doxepin HCl 150 mg PO HS 11/19/16 [History] Ipratropium [Atrovent Inhaler] 2 puff IH QID 11/19/16 [History] Ketotifen Fumarate 1 drop BOTH EYES BID 11/19/16 [History] Lisinopril [Zestril] 20 mg PO DAILY 11/19/16 [History] Montelukast [Singulair] 10 mg PO DAILY 11/19/16 [History] Omeprazole [PriLOSEC] 40 mg PO DAILY 11/19/16 [History] Oxycodone HCl/Acetaminophen [Percocet 5-325 mg Tablet] 1 each PO Q6H PRN [History] Sennosides/Docusate Sodium [Senna Plus] 1 each PO BID 11/19/16 [History] Simvastatin [Zocor] 80 mg PO HS 11/19/16 [History] Triamcinolone Acet 0.1% CRM [Kenalog] 1 appl TP BID 11/19/16 [History] Urea 1 appl TP BID 11/19/16 [History] Allergies/Adverse Reactions: Allergies atorvastatin [From Lipitor] Adverse Reaction (Verified 11/19/16 16:45) See Comments per [facility] list colestipol Adverse Reaction (Verified 11/19/16 16:45) See Comments per [facility] list gabapentin Adverse Reaction (Verified 11/19/16 16:45) See Comments per [facility] list Methadone Adverse Reaction (Verified 11/19/16 16:02) Abdominal Pain niacin Adverse Reaction (Verified 11/19/16 16:45) See Comments per [facility] list pregabalin [From Lyrica] Adverse Reaction (Verified 11/19/16 16:02) Depression Salsalate Adverse Reaction (Verified 11/19/16 16:02) Nausea Pt has ulcers, denies having "allergy" to this medication. Written per [facility] Procedures/tests Complete & Pending: Procedures Performed prior 72 hours Category Date Time Status ECG 12 lead ECG [ECG] AM 0600 Y 11/20/16 06:00 Completed EV echocardiogram Routine Y 11/20/16 22:44 Completed EV venous imaging LE BI Routine Y 11/20/16 22:44 Completed Date of admission: 11/19/16 18:19 Primary care physician: PCP [facility] Consults: 11/20/16 08:49 Consult to Gastroenterology [CONS] Routine Consulting Provider: Gastroenterology Lyric Reason for Consult: GI bleed. gastric ulcers Call Completed: Yes - Patient Status Disposition: Left Against Medical Advice - Discharge Instructions Follow Up With: [facility] [Primary Care Provider] - (please call and make appoinment in 5-7 days ) Hospital course: Mr. Robison is a 71 year old male Pt transfered from [place] with evidence of multiple PEs on CT scan. PMHx AAA, CAD, PVD,COPD,HTN,HLD,smoker c/o back pain x3 months that is dull achying 10/10 located midthoracic and lumbar back without radiation. Pt stated that back pain ,mostly occured when he is standing in the shower, he is very sedentary at home and showering for about 10- 15 minutes is the longest time he spends standing in one position. Pt stated that after standing this long back he got muscles spasms in his back and pain starts without relieve from percocets or excedrin. He was following with GI , had a colonoscopy and EGD which showed polyps and 3 stomach ulcers, at follow up GI appointment a few weeks ago he was told stomach ulcers were healing. The patient was started on heparin drip, also was given blood his hemoglobin was 6.9, he denied bleeding recently or dark stools. The GI service was contacted and Protonix IV was started. Preliminary report of Venous Doppler of both legs did not show any DVT, final report pending Echocardiogram showed an ejection fraction of 65%, mild diastolic dysfunction and no valvular dysfunction or pulmonary hypertension, normal wall segments. The patient mentioned that he had severe PTSD in that he could not stay any longer over a year. He was found smoking in the bathroom by the nurse. I was called and spoke with him extensively trying to make him understand the disease is a life-threatening condition, that he needed to be on a heparin drip because of his history of gastric ulcers especially now being with a very low hemoglobin. He understood the need to remain hospitalized but unfortunately despite being warned of possible he left AGAINST MEDICAL ADVICE. He was encouraged to come back to the hospital to continue therapy at this point he said she was going home. Hemoglobin after receiving blood was 8.4 with a hematocrit of 28.1. Multiple attempts were made to give options to the patient' s, anxiety medication such as Ativan were discussed but he rejected this possibility. Nicotine patch was offered Time spent discussing smoking cessation with patient: 3 to 10 minutes - Time Spent with Patient Total time spent providing and/or coordinating discharge services: Greater than 30 minutes (45 min) - Constitutional Vitals: Temp Pulse Resp BP Pulse Ox 98.3 F 70 18 164/68 95 11/20/16 11:42 11/20/16 11:42 11/20/16 11:42 11/20/16 11:42 11/20/16 11:42 General appearance: Present: A&O X 3, no acute distress, obese, answers questions appropriately - Head Head exam: Present: atraumatic, normocephalic - Eye Eye exam: Present: PERRL, conjuntiva pink, sclera anicteric Pupils: Present: PERRL - Neck Neck exam general surgery: Present: supple, trachea midline. Absent: lymphadenopathy - Respiratory Respiratory exam: Present: CTAB. Absent: accessory muscle use, rales, rhonchi, wheezes - Cardiovascular Cardiovascular exam: Present: RRR, +S1, +S2. Absent: diastolic murmur, gallop, rubs, systolic murmur - GI/Abdominal GI/Abdominal exam: Present: normal bowel sounds, soft, no peritoneal signs. Absent: distended, tenderness - Extremities Exam Extremities exam: Present: warm, radial pulses palpable and symetrical. Absent : calf tenderness, cyanotic, pedal edema - Neurological Exam Neurological exam: Present: CN II-XII intact, oriented X3, no focal deficits. Absent: pronater drift, facial droop, speech deficit - Skin Skin exam: Present: dry, intact
--- NOTE | 2016-11-21 12:16 | Venous Imaging Report ---
LE Venous Duplex Patient Name:Wes Robison Order Number:[id number] Procedure Date:11/20/2016 Date:6Age:71 yrs Gender:Male Location:[facility] Room #: Security Manager:Manjit Nicole, [facility] Referring MD:Ivania Dominguez DO hall worker:[facility] Reading MD:Lit Mart MD Primary Indications:Pulmonary embolism Secondary Indications: Risk Factors Yes/No None Impressions: Bilateral lower extremity: normal superficial and deep exam. Recommendations: After imaging the patient returned to their room. Findings Venous Duplex Results: Right: Venous imaging of the lower extremity reveals full patency and normal vessel compressibility of the right distal iliac, right common femoral, right superficial femoral, right popliteal, right posterior tibial, right peroneal, right great saphenous and right lesser saphenous. Doppler signals in the evaluated veins were normal. Left: Venous imaging of the lower extremity reveals full patency and normal vessel compressibility of the left distal iliac, left common femoral, left superficial femoral, left popliteal, left posterior tibial, left peroneal, left great saphenous and left lesser saphenous. Doppler signals in the evaluated veins were normal. Prior Study: No prior study available for comparison. Lower Extremity Venous Duplex Side Vein Compress Spontaneous Flow Augment Diameter (cm) Depth (cm) Right Distal Iliac Normal Yes Phasic Yes Right Common Femoral Normal Yes Phasic Yes Right Superficial Femoral Normal Yes Phasic Yes Right Popliteal Normal Yes Phasic Yes Right Posterior Tibial Normal Yes Phasic Yes Right Peroneal Normal Yes Phasic Yes Right Great Saphenous Normal Yes Phasic Yes Right Lesser Saphenous Normal Yes Phasic Yes Left Distal Iliac Normal Yes Phasic Yes Left Common Femoral Normal Yes Phasic Yes Left Superficial Femoral Normal Yes Phasic Yes Left Popliteal Normal Yes Phasic Yes Left Posterior Tibial Normal Yes Phasic Yes Left Peroneal Normal Yes Phasic Yes Left Great Saphenous Normal Yes Phasic Yes Left Lesser Saphenous Normal Yes Phasic Yes Updated by Lit Mart MD on 11/21/2016 12:12:16 PM electronically signed on 11/21/2016 12:13:04 PM with status of Final
[2016-11-22 07:30] LABS: Homocysteine 8 umol/L (<=10); Protein C, Functional 137 % (83-168); Protein S Antigen, Total 103 % (84-134); Protein S, Functional 144 % (66-143)
[2016-11-22 09:18] LABS: PT (LE-Anticoag) 13.2 sec (12.0-15.5)
[2016-11-22 10:21] LABS: APTT (LE Anticoag) 26 sec (32-48)
[2016-11-22 11:13] LABS: Diluted Russell Viper Venom 31 sec (33-44)
== END 2016-11-20 17:00 | disposition left against medical advice (07) | DRG 176 ==
LOC: EMEROO 15:39 → 2NENU 18:19
PROVIDERS: ADMIT Internal Medicine; ATTEND Internal Medicine